=== PATIENT | male | born 1975 | race Caucasian/White ===

== ENCOUNTER 2023-06-27 17:05 | Emergency (ER) | payer OTHER, SELFPAY ==
[2023-06-27 17:08] VITALS: BP 149/85; BMI 38.5
[2023-06-27 17:32] LABS: % Basophils 0.5 % (0-2); % Immature Granulocytes 0.5 % (0-0.5); % Lymphocytes 16.6 % (20.5-51.1); % Neutrophils 75.4 % (42.2-75.2); Absolute Basophils 0.1 10^3/uL (0-0.2); Absolute Eosinophils 0.1 10^3/uL (0-0.7); Absolute Immature Granulocytes 0.1 10^3/uL (0-0.05); Absolute Lymphocytes 2.2 10^3/uL (1.2-3.4); Absolute Monocytes 0.8 10^3/uL (0.1-0.6); Absolute Neutrophils 9.8 10^3/uL (1.4-6.5); Hemoglobin 15.5 g/dL (13.0-18.0); Mean Corp Hgb Conc. 35.2 g/dL (33.0-37.0); Mean Corpuscular Volume 82.2 fL (80.0-94.0); Mean Platelet Volume 12.1 fL (7.4-10.4); Nucleated Red Blood Cells % 0 % (-); Platelet Count 211 10^3/uL (130-400); Red Blood Cell Count 5.35 10^6/uL (4.70-6.10); Red Cell Dist. Width 12.6 % (11.5-14.5)
[2023-06-27 17:50] LABS: ALT (SGPT) 40 U/L (0-50); AST (SGOT) 35 U/L (17-59); Albumin 4.6 g/dl (3.5-5.0); Alkaline Phosphatase 85 U/L (38-126); Blood Urea Nitrogen 13 mg/dl (9-20); Calcium 9.5 mg/dl (8.4-10.2); Carbon Dioxide 23 mmol/L (22-30); Chloride 107 mmol/L (98-107); Estimated Creatinine Clearance > 125 ml/min; Glucose 109 mg/dl (70-99); Lipase 131 U/L (23-300); Sodium 137 mmol/L (135-145); Total Bilirubin 0.5 mg/dl (0.2-1.3); Total Protein 7.3 g/dl (6.3-8.2); eGFR > 60.00
--- NOTE | 2023-06-27 18:21 | ED.GENMED ---
History of Present Illness
General
Chief Complaint: Abdominal Pain
Time Seen by Provider: 06/27/23 18:20
Travel History
Have you had any contact with someone who has COVID-19?: No
Do you have any symptoms of coronavirus? Fever > 100 degrees, chills, cough, shortness of breath, sore throat, loss of taste or smell, muscle aches, or headache?: No
History of Present Illness
History of Present Illness:
HPI: Patient presents with supraumbilical pain that started at about 5:30 AM today after he woke up. He has no diarrhea or vomiting and currently has no nausea. He had normal bowel movement today. He has had appendectomy in the past. He has had
kidney stones in the past.
EXAM:
GENERAL: Well appearing in no distress
HEENT: Moist oral mucosa
CARDIOVASCULAR: No murmurs, normal heart rate, regular rhythm, No chest wall tenderness
PULMONARY: No respiratory distress, breath sounds are clear and equal
ABDOMEN: Soft with no peritoneal signs, no tenderness
NEUROLOGIC: Excellent strength all extremities, no coordination deficits
PSYCHIATRIC: Appropriate mental status, normal insight and judgement
EXTREMITIES: Nontender, no edema, moves all extremities equally
SKIN: No rash, no lesions
TIME OF INITIAL ENCOUNTER: 6:30 PM
NUMBER AND COMPLEXITY OF PROBLEMS ADDRESSED AT THE ENCOUNTER
� Chronic conditions affecting care: Has had appendectomy in the past and kidney stones, migraines
� Acute Exacerbation and/or Progression of Chronic Illness: This is an acute problem
� Differential Diagnosis includes: Ventral wall hernia, GERD, biliary colic, muscle strain
AMOUNT AND/OR COMPLEXITY OF DATA TO BE REVIEWED AND ANALYZED
� I performed an independent evaluation of and my interpretation is:
EKG:
CT: CT imaging showed no acute abnormality
X-rays:
Laboratory Studies: White count is 13.0 but other chemistries normal. LFTs and lipase are normal
Other:
� Review of other/old records: The patient was here in August of last year with thoracic back pain
� Clinical information was obtained by an independent historian: None needed
� Prescriptions/Medications Considered but not given:
� Further testing considered but not performed:
RISK OF COMPLICATIONS AND/OR MORBIDITY OR MORTALITY OF PATIENT MANAGEMENT
� Social determinants of health affecting care: Lives at home
� Discussion with other providers: Notified GI front desk coordinator to arrange close follow-up as an outpatient.
� Escalation of care including admission/observation vs risk of discharge considered: Patient was given Toradol initially. CT imaging reassuring. White count slightly elevated. Pain is primarily supraumbilical but he has no
peritoneal signs. On reassessment at 8:30 PM, the patient reports the Toradol 'took the edge off'. No clear indication for narcotic analgesia. He appears fairly comfortable at time of discharge. Symptoms could be related to GERD/gastritis.
Past History
Past History
ED Past Medical History: None
ED Past Surgical History: Appendectomy
Patient has exhibited threatening behavior?: No
PSI?: No
Phy Exam
Physical Exam
Physical Exam:
See HPI
Course
Orders/Labs/Results
Orders:
Orders
06/27/23 17:18
Complete Blood Count/With Diff Urgent
Comprehensive Metabolic Panel Urgent
Lipase Urgent
06/27/23 18:31
CT Abd/pelvis W Iv Cont Urgent
Comment:
Reason For Exam: supraumbilical pain tender; had appendectomy
0.9% Sodium Chloride 1000 ml [Nss] 1,000 ml IV BOLUS
Ketorolac [Toradol] 15 mg IV NOW STA
06/27/23 20:30
Famotidine [Pepcid] 20 mg IV NOW STA
Pantoprazole [Protonix IV] 40 mg IV NOW STA
Abnormal Lab Results
06/27/23
17:18
WBC 13.0 H 10^3/uL
(4.8-10.8)
MPV 12.1 H fL
(7.4-10.4)
Abs Immat Gran (auto) 0.1 H 10^3/uL
(0-0.05)
Absolute Neuts (auto) 9.8 H 10^3/uL
(1.4-6.5)
Absolute Monos (auto) 0.8 H 10^3/uL
(0.1-0.6)
Neutrophils % 75.4 H %
(42.2-75.2)
Lymphocytes % 16.6 L %
(20.5-51.1)
Glucose 109 H mg/dl
(70-99)
06/27/23 17:18
06/27/23 17:18
Vital Signs
Initial and Last Documented VS:
Initial Vital Signs
Temp Pulse Resp BP Pulse Ox
98.4 F 93 16 149/85 95
06/27/23 17:08 06/27/23 17:08 06/27/23 17:08 06/27/23 17:08 06/27/23 17:08
Last Documented Vital Signs
Temp Pulse Resp BP Pulse Ox
98.4 F 93 16 149/85 95
06/27/23 17:08 06/27/23 17:08 06/27/23 17:08 06/27/23 17:08 06/27/23 17:08
*Critical Care Note
Total Time (30-74mins, 75-104mins- exclusive of procedures): Not Applicable
ED Attending Note
-
Portions of this chart may have been created with voice recognition software.� Occasional wrong word or��sound alike� substitutions may have occurred due to the inherent limitations of voice recognition software.
Discharge Plan
Departure
Patient Disposition: Home (Routine Discharge)
Date of Disposition: 06/27/23
Time of Disposition: 20:31
Patient with high blood pressure during this ER visit?: Yes
Discharge Problem:
Abdominal pain
Instructions: Abdominal Pain
Prescriptions:
No Action
methocarbamol 750 mg tablet
750 - 1,500 mg PO Q8H PRN (Reason: muscle pain) Qty: 30 0RF
methylprednisolone [Medrol (Daquan)] 4 mg tablets,dose pack
See Rx Instructions .ROUTE .COMPLEX Qty: 21 0RF
Rx Instructions:
orally per package directions
Referrals:
NONE,* [Family Provider] -
Activity Restrictions/Additional Instructions:
The cause of your pain is unclear. Your white blood cell count is slightly elevated at 13.0 but other basic labs are normal including liver test, kidney function, electrolytes, and pancreas test. The CAT scan shows a few 'colonic diverticula'
however there is no sign of inflammation meaning this would not be the cause of your pain and diverticulitis typically does not present with pain just above the bellybutton. I recommend that you follow-up with a GI doctor. I recommend that you try
a 2-week course of [id number] omeprazole. You could also try [id number] Pepcid for more immediate relief. Return here if worse.
Interventions
Interventions:
*Risk Screen - Suicide Last Done: 06/27/23 17:08
*Neglect/Abuse Screening Last Done: 06/27/23 17:08
ED- Fall Risk Assessment Last Done: 06/27/23 19:02
*ED COVID-19 Vaccine History Last Done: 06/27/23 17:08
XS-Jopcqn-Zelqlviglx Assessment Last Done: 06/27/23 19:02
Discharge Date and Time
Print Language: OCCITAN
[2023-06-27] MEDS: NSS 1000 IV (18:52)
[2023-06-27] MEDS: TORADOL 15 MG IV (18:52)
[2023-06-27] MEDS: PROTONIX IV 40 MG IV (20:37)
[2023-06-27] MEDS: PEPCID 20 MG IV (20:37)
[2023-06-27 20:44] VITALS: BP 125/76
== END 2023-06-27 20:50 | disposition home or self-care (01) ==
LOC: EMR 17:05
PROVIDERS: Emergency Medicine; EMERGENCY PHYSICIAN Emergency Medicine
DX: R10.9 Unspecified abdominal pain (principal); D72.829 Elevated white blood cell count, unspecified; Z87.442 Personal history of urinary calculi; Z90.49 Acquired absence of other specified parts of digestive tract
CPT/HCPCS: 99284; 96374; 96375; 96361; 74177; 80053; 83690; 85025; Q9967

== ENCOUNTER 2023-06-30 19:45 | Emergency (ER) | payer OTHER, SELFPAY ==
[2023-06-30 19:49] VITALS: BP 173/106
[2023-06-30 22:23] VITALS: BP 136/79
--- NOTE | 2023-06-30 22:25 | EDRN ---
Pt was seen in this ED couple days ago for abdominal pain. Pt says there was no cause of his abd pain and he was started on acid reduction medication and given pain pills. Pt says abd pain around his belly button returned today. Also, pt has had
pain in R posterior shoulder that radiates into R elbow - pain is primarily in R upper arm currently which is the primary reason pt came to ED [facility]. Pt has had this pain on and off for the past year but the past two days the pain has been
constant. Pt recently got a new mattress and thought that was causing the pain but says he has not been able to sleep for the past two nights due to the increased pain. Pt went to urgent care last night and had a xray done. Pt was told he
probably has a pinched nerve and was given a Rx for gabapentin. Pt took two doses (last dose 1000) and says he will not take any more because they don't work. Pt says he has tried lido patches and muscle relaxers and nothing works. Last
medication for pain was 1000 today. Pt took 3 ibuprofen last night. Pt read his CT report and is concerned that a finding of posterior bulge L4-5 and L5-S1 may be causing problem in his shoulder and says not one discussed these results with him.
Pt denies injury to R arm, cp, sob, n/v/d/constipation, fever/chills/cough, weakness, dizziness, urinary symptoms.
--- NOTE | 2023-06-30 23:16 | ED.GENMED ---
History of Present Illness
General
Chief Complaint: Musculo-Skeletal Complaint
Source: patient
Exam Limitations: none
Time Seen by Provider: 06/30/23 22:33
Travel History
Have you had any contact with someone who has COVID-19?: No
Do you have any symptoms of coronavirus? Fever > 100 degrees, chills, cough, shortness of breath, sore throat, loss of taste or smell, muscle aches, or headache?: No
History of Present Illness
History of Present Illness:
This is a 47 year old male that comes in with c/o right shoulder pain. States that he was here on June 26 for abd pain. States that he had a CT scan done then but he still is having pain. States that he felt better for a day or so and then it came
back. States that now he has right shoulder pain form the back of the shoulder down into the right upper arm. States that he cant sleep due to the pain. 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 States that they got a new mattress 3
weeks ago. States that in the last 48 hours he is unable to sleep due to the pain. Denies any injury to the shoulder or arm. States that he went to yesterday and was given Gabapentin and he took 2 doses but this did not help so he stopped. Deies
any fever, chills, chest pain, SOB, nausea, vomiting, diarrhea, headache, dizziness, urinary burning.
Past History
Past History
ED Past Medical History: Other (Migraine, PVC)
ED Past Surgical History: Appendectomy and Other (Cyst removed from neck)
Patient has exhibited threatening behavior?: No
PSI?: No
Social History
Tobacco: Former smoker
Alcohol: Occasional (2-3 glasses of wine)
Personal:
Living: with family
Employment: Employed
Review of Systems
Review of Systems
All Other Systems: ROS reviewed and negative except as documented in HPI and ROS
Constitutional: Reports no symptoms; Denies fever or chills
EENT: Reports no symptoms
Respiratory: Reports no symptoms; Denies cough or trouble breathing
Cardiac: Reports no symptoms; Denies chest pain
ABD/GI: Reports abdominal pain; Denies nausea, vomiting or diarrhea
: Reports no symptoms; Denies dysuria, frequency or urgency
Musculoskeletal: Reports joint pain (Right shoulder pain)
Skin: Reports no symptoms
Neurological: Reports no symptoms; Denies dizzy or headache
Psychiatric: Reports no symptoms
Phy Exam
General Physical Exam
General Presentation: well appearing and no apparent distress
General age: appears stated age
General Skin: warm and dry
General Habitus: normal
General Mental: alert
General Hydration: appears well hydrated
ENT Exam
ENT Exam: TM's normal, pharynx normal and neck supple
Eye Exam
Eye Exam: EOMI
Cardiovascular Exam
Cardiovascular Exam: regular rate/rhythm, no edema, no murmur and normal peripheral pulses
Pulmonary Exam
Pulmonary Exam: lungs clear, no respiratory distress, no rales, chest non tender, no crackles, no rhonchi, no wheezing and no cough
Gastrointestinal Exam
Gastrointestinal Exam: normal bowel sounds, non tender, soft, no organomegaly, no pulsatile mass, non distended and other (Obese)
Musculoskeletal Exam
Musculoskeletal Exam: full ROM, no edema and other (Patient denies discomfort with distention, some discomfort with cross over. tenderness with palpation over the trapezium muscle. Normal peripheral pulse. Negative for any swelling)
Skin Exam
Skin Exam: normal color, warm/dry, no rash and no petechia
Psychiatric Exam
Psychiatric Exam: normal mood/affect
Course
Orders/Labs/Results
Orders:
Orders
06/30/23 23:11
Acetaminophen [Tylenol] 1,000 mg PO NOW STA
Ketorolac [Toradol] 60 mg IM NOW STA
07/01/23 00:18
Prednisone [Deltasone] 50 mg PO NOW STA
Vital Signs
Initial and Last Documented VS:
Initial Vital Signs
Temp Pulse Resp BP Pulse Ox
97.9 F 86 18 173/106 99
06/30/23 19:49 06/30/23 19:49 06/30/23 19:49 06/30/23 19:49 06/30/23 19:49
Last Documented Vital Signs
Temp Pulse Resp BP Pulse Ox
97.9 F 75 16 136/79 98
06/30/23 19:49 06/30/23 22:23 06/30/23 22:23 06/30/23 22:23 06/30/23 22:23
MDM/Problems Addressed
Differential Diagnosis Includes:
Musculoskeletal pain.
MDM/Problems Addressed:
This is a 47 year old male that comes in with c/o right shoulder pain that goes down into the upper arm. States that he s unable to sleep due to the pain. States that he went to and was given Gabapentin. State that he also took a muscle relaxer
and this did not help. States that they also did an X-ray and did not want another X-ray as he states that this is a waste of money.
Will give Tylenol and Toradol for pain and recheck.
States that the Tylenol and the Toradol did not help at all. Will give patient a steroid and have him follow up with the legal specialist. Patient told nursing that this has been going on for a year. Patient to return with swelling or any
other concerns.
Chronic conditions affecting care:
NA
Acute Exacerbation and/or Progression of Chronic Illness:
NA
*Pulse Oximetry
Patient hypoxic: no
*EKG
Interpreted by ED Provider?: NA
Rate: EKG- N/A
*Paperhanger Contractor Interpretation
Rate: Paperhanger Contractor- N/A
*Critical Care Note
Total Time (30-74mins, 75-104mins- exclusive of procedures): Not Applicable
ED Attending Note
-
Portions of this chart may have been created with voice recognition software.� Occasional wrong word or��sound alike� substitutions may have occurred due to the inherent limitations of voice recognition software.
Discharge Plan
Departure
Patient Disposition: Home (Routine Discharge)
Date of Disposition: 07/01/23
Time of Disposition: 00:19
Patient with high blood pressure during this ER visit?: Yes
Condition: Good
Covid-19: Not Applicable
Discharge Problem:
Musculoskeletal pain of upper extremity
Instructions: Musculoskeletal Pain
Prescriptions:
New
prednisone 20 mg tablet
40 mg PO DAILY Qty: 10 0RF
pantoprazole [Protonix] 40 mg tablet,delayed release (DR/EC)
40 mg PO DAILY Qty: 30 0RF
ketorolac 10 mg tablet
10 mg PO TID 5 Days Qty: 15 0RF
No Action
Acid Rotary Peel Oven Tender-Antacid
1 tab PO DAILY
Referrals:
Manolo Tena MD [Active] - Follow up in 2-3 days
Activity Restrictions/Additional Instructions:
As discussed, this is most likely a musculoskeletal pain. You may use Tylenol 1000mg every 6 hours for pain and you have been given a prescription for Toradol 10mg every 8 hours that has been sent to your Pharmacy. You also had a prescription for
Protonix to help protect your stomach. This has been sent to your Pharmacy. You may use heat or ice to the shoulder. Please follow up with the legal specialist for further evaluation. IF YOU HAVE ANY OTHER CONCERNS PLEASE RETURN TO THE
EMERGENCY ROOM.
Interventions
Interventions:
*Risk Screen - Suicide Last Done: 06/30/23 22:23
*General Assessment Last Done: 06/30/23 19:50
*Neglect/Abuse Screening Last Done: 06/30/23 22:23
*ED COVID-19 Vaccine History Last Done: 06/30/23 19:50
ED-Musculoskeletal Assessment Last Done: 06/30/23 22:23
Discharge Date and Time
Print Language: MOSOTHO
[2023-06-30] MEDS: TORADOL 60 MG IM (23:36)
[2023-06-30] MEDS: TYLENOL 1000 MG PO (23:36)
[2023-07-01] MEDS: DELTASONE 50 MG PO (00:32)
== END 2023-07-01 00:37 | disposition home or self-care (01) ==
LOC: EMR 19:45
PROVIDERS: EMERGENCY PHYSICIAN Emergency Medicine
DX: M79.18 Myalgia, other site (principal); Z87.891 Personal history of nicotine dependence; Z90.49 Acquired absence of other specified parts of digestive tract
CPT/HCPCS: 99282